=== PATIENT | male | born 2000 | race Caucasian/White ===

== ENCOUNTER → 2022-11-02 | Outpatient (CLI) | payer BC ==
[2022-11-02 11:33] LABS: ALBUMIN 4.2 g/dL (3.5-5.0)
[2022-11-02 11:34] LABS: POTASSIUM 4.2 mmol/L (3.5-5.1)
[2022-11-02 11:35] LABS: CALCIUM 9.6 mg/dL (8.3-10.5)
[2022-11-02 11:36] LABS: TOTAL PROTEIN 6.8 g/dL (6.4-8.3)
[2022-11-02 11:37] LABS: BASO # 0.04 K/mm3 (0.02-0.10); EOS # 0.06 K/mm3 (0.04-0.40); EOS % 1.2 % (0.0-4.0); HEMATOCRIT 43.3 % (42.0-52.0); LYMPH# 2.02 K/mm3 (1.50-4.00); MEAN CELL VOLUME 89 fl (78-100); MEAN CORPUSCULAR HEMOGLOBIN 31 pg (27-31); MEAN CORPUSCULAR HGB CONC 35 g/dL (33-37); MEAN PLATELET VOLUME 9.8 fl (7.4-10.4); MONO # 0.64 K/mm3 (0.20-0.80); NEU # 2.23 K/mm3 (1.40-6.50); PLATELET COUNT 271 K/mm3 (130-400); RED BLOOD COUNT 4.87 M/mm3 (4.20-5.60); RED CELL DISTRIBUTION WIDTH 11.9 % (11.5-14.5)
[2022-11-02 11:38] LABS: TOTAL BILIRUBIN 0.6 mg/dL (0.2-1.2)
[2022-11-02 11:44] LABS: URINE APPEARANCE CLEAR; URINE COLOR YELLOW
[2022-11-02 11:45] LABS: URINE BILIRUBIN NEGATIVE (NEGATIVE); URINE BLOOD NEGATIVE (NEGATIVE); URINE GLUCOSE NEGATIVE (NEGATIVE); URINE KETONE NEGATIVE (NEGATIVE); URINE LEUKOCYTE ESTERASE NEGATIVE (NEGATIVE); URINE MUCUS PRESENT (NOT PRESENT); URINE NITRATE NEGATIVE (NEGATIVE); URINE PROTEIN(semi-quant) TRACE (NEGATIVE); URINE UROBILINOGEN NORMAL (NORMAL); URINE WBC 0-1 /hpf (0-3)
== END ==
LOC: LAB 11:03
PROVIDERS: Nurse Practitioner Family
DX: M62.81 Muscle weakness (generalized) (principal); R10.9 Unspecified abdominal pain